=== PATIENT | male | born 1960 | race Caucasian/White ===

== ENCOUNTER 2021-04-05 14:59 | Outpatient (CLI) | payer OTHER, SELFPAY ==
--- NOTE | ~2021-04-05 | XR_ITS ---
EXAMINATION: XR lumbar spine min 4V DATE: 04/05/2021 15:20 INDICATION: Left-sided low back pain. TECHNIQUE: 5 views of lumbar spine were obtained. COMPARISON: None. FINDINGS: There is 10 degrees levoscoliosis of thoracolumbar spine. Vertebral body heights are normal . There is moderately decreased disc height at L4-L5 and severely decreased disc height at L5-S1. The re are endplate osteophytes at all levels. There is multilevel mild facet joint osteoarthritis. There is moderate bilateral facet joint osteoarthritis at L5-S1. IMPRESSION: 1. Severe lower lumbar spondylosis. 2. Thoracolumbar levoscoliosis. Reviewed, dictated and finalized at location A. [employer]
== END 2021-04-05 15:00 | disposition home or self-care (01) ==
LOC: ANHIMG 15:02
PROVIDERS: PCP Family Medicine; Visit Provider Nurse Practitioner Gerontology
DX: M54.50 Low back pain, unspecified (principal); M47.816 Spondylosis without myelopathy or radiculopathy, lumbar region; M41.85 Other forms of scoliosis, thoracolumbar region
CPT/HCPCS: 72110